=== PATIENT | female | born 1990 | race American Indian/Alaskan Native ===

== ENCOUNTER 2016-12-17 12:37 | Emergency (ER) | payer MEDICAID, OTHER ==
[2016-12-17 13:19] VITALS: BP 127/84
[2016-12-17 17:52] LABS: Bilirubin,Urine NEG (Negative); Blood,Urine NEG (Negative); Ketones,Urine NEG (Negative); Leukocyte Esterase,Urine SM (Negative); Mucus,Urine 3+ /HPF; Nitrite,Urine NEG (Negative); Protein,Urine <15 mg/dL mg/dL (Negative); Urobilinogen,Urine < 2.0 mg/dL (<2.0)
--- NOTE | 2016-12-17 18:39 | Emergency Department Report ---
ED Female HPI - General Chief complaint: Urogenital-Female Stated complaint: UTI Time Seen by Provider: 12/17/16 16:45 Source: patient Mode of arrival: Ambulatory Limitations: No Limitations - History of Present Illness Initial comments: Patient presents with dysuria off and on 2 weeks. She states that she has seen blood on the toilet paper after wiping. She admits to frequency, urgency, vaginal discharge that is white odorous, denies itching, abdominal pain, back pain. MD Complaint: vaginal discharge, dysuria -: Gradual Consistency: intermittent Worsens with: urination Are you Now?: No Last Menstrual Period: 05/25/15 (the patient has an Implanon) EDC: 02/29/16 Associated Symptoms: vaginal discharge, dysuria, hematuria. denies: abdominal pain, nausea/vomiting, fever/chills, loss of appetite - Related Data Sexually active: Yes Home Medications Medication Instructions Recorded Confirmed Last Taken Calcium-Pnv 28-1-250 mg Sftgl 1 tab PO DAILY 11/24/15 11/24/15 Unknown Previous Rx's Medication Instructions Recorded Last Taken Type Amoxicillin [Amoxicillin TAB] 875 mg PO BID #14 tablet 12/17/16 Unknown Rx Allergies Allergy/AdvReac Type Severity Reaction Status Date / Time No Known Allergies Allergy Verified 12/17/16 13:20 ED Review of Systems ROS: Stated complaint: UTI Other details as noted in HPI Constitutional: denies: chills, fever Respiratory: denies: cough, shortness of breath, wheezing Cardiovascular: denies: chest pain, palpitations Gastrointestinal: denies: abdominal pain, nausea, diarrhea Genitourinary: dysuria, frequency, hematuria, discharge. denies: urgency Musculoskeletal: denies: back pain, joint swelling, arthralgia Skin: denies: rash, lesions Neurological: denies: headache, weakness, paresthesias ED Past Medical Hx - Past Medical History Previous Medical History?: No Hx Hypertension: No Hx Congestive Heart Failure: No Hx Diabetes: No Hx Deep Vein Thrombosis: No Hx Renal Disease: No Hx Sickle Cell Disease: No Hx Seizures: No Hx Asthma: No Hx COPD: No Hx HIV: No - Surgical History Past Surgical History?: No - Social History Smoking Status: Never Smoker Substance Use Type: None - Medications Home Medications: Home Medications Medication Instructions Recorded Confirmed Last Taken Type Calcium-Pnv 28-1-250 mg Sftgl 1 tab PO DAILY 11/24/15 11/24/15 Unknown History Amoxicillin [Amoxicillin TAB] 875 mg PO BID #14 tablet 12/17/16 Unknown Rx ED Physical Exam - General Limitations: No Limitations General appearance: alert, in no apparent distress - Head Head exam: Present: atraumatic, normocephalic - Eye Eye exam: Present: normal appearance - Respiratory Respiratory exam: Present: normal lung sounds bilaterally. Absent: respiratory distress - Cardiovascular Cardiovascular Exam: Present: regular rate, normal rhythm. Absent: systolic murmur, diastolic murmur, rubs, gallop - GI/Abdominal GI/Abdominal exam: Present: soft, normal bowel sounds. Absent: tenderness - Back Exam Back exam: Present: normal inspection. Absent: CVA tenderness (R), CVA tenderness (L) - Neurological Exam Neurological exam: Present: alert, oriented X3 - Psychiatric Psychiatric exam: Present: normal affect, normal mood - Skin Skin exam: Present: warm, dry, intact, normal color. Absent: rash ED Course Vital Signs 12/17/16 13:17 Temperature 98.3 F Pulse Rate 80 Respiratory 16 Rate Blood Pressure 127/84 O2 Sat by Pulse 100 Oximetry ED Medical Decision Making - Medical Decision Making Patient presents with urinary frequency and urgency and pain. WBC count is elevated on urinalysis. I will give amoxicillin twice a day 7 days for UTI. Gonorrhea chlamydia ordered and will contact patient if abnormal. - Differential Diagnosis std, gonorrhea, UTI Critical Care Time: No Critical care attestation.: If time is entered above; I have spent that time in minutes in the direct care of this critically ill patient, excluding procedure time. ED Disposition Clinical Impression: UTI (urinary tract infection) Disposition: DISCHARGED TO HOME OR SELFCARE Is pt being admited?: No Does the pt Need Aspirin: No Condition: Stable Instructions: Urinary Tract Infection in Women (ED) Prescriptions: Amoxicillin [Amoxicillin TAB] 875 mg PO BID #14 tablet Referrals: PRIMARY CARE, [Primary Care Provider] - 3-5 Days Forms: Work/School Release Form(ED) Time of Disposition: 18:39
== END 2016-12-17 18:50 | disposition home or self-care (01) ==
LOC: ED 12:37
DX: N39.0 Urinary tract infection, site not specified (principal); Z79.899 Other long term (current) drug therapy; Z79.2 Long term (current) use of antibiotics
CPT/HCPCS: 81001; 99283

== ENCOUNTER 2018-08-06 12:40 | Emergency (ER) | payer SELFPAY ==
[2018-08-06 12:55] VITALS: BP 124/77
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
== END 2018-08-06 20:15 | disposition home or self-care (01) ==
LOC: ED 12:40
DX: S61.411A Laceration without foreign body of right hand, initial encounter (principal); Y04.0XXA Assault by unarmed brawl or fight, initial encounter; Y93.9 Activity, unspecified; Y92.89 Other specified places as the place of occurrence of the external cause; Y99.8 Other external cause status
CPT/HCPCS: 99282

== ENCOUNTER 2018-12-16 13:47 | Outpatient (CLI) | payer MEDICAID ==
[2018-12-16] MEDS ORDERED: LACTATED RINGERS 500 ML IV ONE (13:55)
[2018-12-16 14:09] VITALS: BP 102/60
[2018-12-16 15:06] LABS: Bacteria,Urine 1+ /HPF (Negative); Bilirubin,Urine NEG (Negative); Blood,Urine NEG (Negative); Color,Urine Yellow (Yellow); Mucus,Urine FEW /HPF; Protein,Urine <15 mg/dL mg/dL (Negative); Urobilinogen,Urine < 2.0 mg/dL (<2.0)
--- NOTE | 2018-12-16 16:58 | Ultrasound Report ---
FINAL REPORT EXAM: US OB >= 14 WEEKS FETUS HISTORY: cervical length, CAITLIN, placenta TECHNIQUE: OB ultrasound was performed. PRIORS: None. FINDINGS: A single intrauterine fetus is present in cephalic presentation. The maternal cervix is closed measur ing 3.2 centimeters in length. heart rate was detected at 158 beats per minute. The placenta is grade 0 and anterior in location. No evidence of placenta previa. The amniotic fluid index is 10.6 c entimeters. IMPRESSION: 1. Cervical length of 3.2 centimeters. 2. Amniotic fluid index of 10.6 centimeters. 3. Anterior placenta without evidence of previa.
== END 2018-12-16 17:04 | disposition home or self-care (01) ==
LOC: TRG 13:47
PROVIDERS: ATTEND Obstetrics & Gynecology
DX: O47.02 False labor before 37 completed weeks of gestation, second trimester (principal); O24.419 Gestational diabetes mellitus in pregnancy, unspecified control; Z3A.25 25 weeks gestation of pregnancy
CPT/HCPCS: 59025; 76815; 81001; 96360; J7120

== ENCOUNTER 2019-09-09 13:33 | Emergency (ER) | payer SELFPAY ==
--- NOTE | 2019-09-09 15:09 | Emergency Department Report ---
Blank Doc - Documentation Documentation: Patient was placed in a room and she was referred to be seen and by time I got to the room patient had left the emergency Department without alerting any of our staff. Patient has eloped and left without being seen.
== END 2019-09-09 17:26 | disposition left against medical advice (07) ==
LOC: ED 13:33
DX: Z53.21 Procedure and treatment not carried out due to patient leaving prior to being seen by health care provider (principal)